=== PATIENT | female | born 1990 | race Caucasian/White ===

== ENCOUNTER → 2017-02-03 | Outpatient (CLI) | payer OTHER | END | disposition home or self-care (01) | LOC: C.LABBC 11:07 | PROVIDERS: ATTEND Family Medicine | DX: Z13.29 Encounter for screening for other suspected endocrine disorder (principal) ==

== ENCOUNTER → 2017-04-26 | Outpatient (CLI) | payer OTHER ==
--- NOTE | 2017-04-26 10:27 | DIAGNOSTIC IMAGING REPORT ---
KUB CLINICAL HISTORY: 26 years-old Female presenting with foreign body and alimentary tract, swallowed tongue ring. TECHNIQUE: Single supine view of the abdomen was obtained. COMPARISON: None. FINDINGS: No radiopaque foreign body. Normal bowel gas pattern. No evidence of free intraperitoneal gas, pneumatosis, or portal venous gas. No calcifications project over the renal shadows or along the courses of the ureters. Osseous structures normal. Lung bases clear. IMPRESSION: 1. No radiopaque foreign body in the abdomen or pelvis. Electronically signed by: Pedro Luis Bangura M.D. 04/26/2017 10:26 AM Dictated Date/Time: 04/26/2017 10:25 AM
== END | disposition home or self-care (01) ==
LOC: C.RADBC 10:09
PROVIDERS: ATTEND Physician Assistant Medical
DX: T18.9XXA Foreign body of alimentary tract, part unspecified, initial encounter (principal); Y92.9 Unspecified place or not applicable

== ENCOUNTER 2024-06-17 22:12 | Observation (INO) ==
--- OUTSIDE RECORDS SUMMARY | 2024-06-17 22:19 | External Medical Summary | Summary of Care ---
Author Name Unknown Organization [facility] Address [address] [place] [address] Phone [phone] Care Team Providers Care Aircraft Pneudraulics Repairer Name Role Phone Lori Mcguire MD Primary Care Provide r Reason for Visit * Reason Onset Date Comments Appointment Canceled 05/29/2024 EEG Encounter Details Date Type Department Care Team (Late st Contact Info) Description 05/29/2024 Telephone Neurology [facility] [address] [place] [address] Siddharth Chang, DO [address] [place] [address] Appointment Canceled (EEG) Allergies No known active allergiesdocumented as of this encounter (statuses as of 05/29/2024) Medications Medication Sig Dispensed Refills Start Date End Date Status ROBITUSSIN DM SYRP 100-10 MG/5ML ORIndications:Acute URI 1 teasp tid 4 oz 0 09/29/1999 Active Naloxone HCl 4 MG/0.1ML Nasal Liquid (Narcan Nasal) Administer 0.1 mL into nostril as needed. Administer 1 spray into 1 nostril for suspected opioid overdose. Seek immediate medical attention. [email or web address]://[email or web address]/watch?[email or web address] Active Sertraline HCl 50 MG Oral Tablet (Zoloft) Take 1 Tablet by mouth in the morning. Active Sertraline HCl 100 MG Oral Tablet (Zoloft) TAKE 1 AND 1/2 TABLET BY MOUTH EVERY DAY 02/08/2024 Active levETIRAcetam 500 MG Oral Tablet (Keppra)Indications :not sure of dose Take 2 Tablets by mouth in the morning and 2 Tablets before bedtime. 270 Tablet 2 02/16/2024 Active lamoTRIgine 100 MG Oral Tablet (LaMICtal) 1 tab in am 1 tab pm with 200 mg tablets. 180 Tablet 2 02/16/2024 Active Prazosin HCl 5 MG Oral Capsule (Minipress) Take 1 Capsule by mouth every night at bedtime. 05/22/2024 Active QUEtiapine Fumarate 400 MG Oral Tablet (SEROquel) TAKE 1 TABLET BY MOUTH EVERYDAY AT BEDTIME 04/25/2024 Active hydrOXYzine Pamoate 25 MG Oral Capsule (Vistaril) TAKE 1 CAPSULE BY MOUTH EVERY 6 HOURS NEEDED FOR ANXIETY DIRECTED 02/23/2024 Active lamoTRIgine 200 MG Oral Tablet (LaMICtal) Take 1 Tablet by mouth in the morning and 1 Tablet before bedtime. 270 Tablet 2 05/23/2024 Active documented as of this encounter (statuses as of 05/29/2024) Active Problems Problem Noted Date Diagnosed Date Epileptic seizure 11/14/2023 Anxiety 11/14/2023 Recurrent major depressive disorder, in partial remission 11/14/2023 PTSD (post-traumatic stress disorder) 11/14/2023 documented as of this encounter (statuses as of 05/29/2024) Social History Tobacco Use Types Packs/Day Years Used Date Smoking Tobacco: Never Smokeless Tobacco: Never Alcohol Use Standard Drinks/Week Comments Not Currently 0 (1 standard drink = 0.6 oz pur e alcohol) Utilities Answer Date Recorded Do you have trouble paying y our heating, water, or electric bill? (Adult - for ages 18 years and over) Not on file 01/24/2024 Is your family able to pay t he heat, water, or electric bill? (Household - for ages 0-17 years) Not on file 01/24/2024 Does your family have access to good internet? (Household - for ages 0-17 years) Not on file 01/24/2024 Social Connections Answer Date Recorded How often do you feel lonely or isolated from those around you? (Adult - for ages 18 years and over) Not on file 01/24/2024 Sex and Gender Information Value Date Recorded Sex Assigned at Not on file Gender Identity Not on file Sexual Orientation Not on file Job Start Date Occupation Industry Not on file Not on file Not on file documented as of this encounter Miscellaneous Notes * Telephone Encounter - Simran Macdonald OSA - 05/29/2024 9:31 AM EDT LMOM Pt's 72 hr EEG was cancelled and needs rescheduled documented in this encounter Plan of Treatment Upcoming Encounters Date Type Department Care Team (Late st Contact Info) Description 06/05/2024 11:40 AM EDT Office Visit Family Medicine [address] [place] [phone] Lori Mcguire MD [address] [place] [address] [place] [address] 09/18/2024 11:20 AM EST Office Visit Neurology [address] [place] [address] [place] [address] Siddharth Chang, DO [address] [place] [address] Health Maintenance Due Date Last Done Comments Depression Monitoring 2004 HIV Screening 2007 Hepatitis C Screening 2010 Pap Smear 2013 DTap/Tdap Vaccines (7 - Td or Tdap) 06/17/2015 06/17/2005, 09/05/1997, 04/19/1994, Additional history exists Cervical Cancer Screening 2022 HPV/Co-Test 2022 COVID-19 Vaccine ( season) 2024 Influenza Vaccine (FLU shot) (#1) 2024 05/08/2019, 05/21/2009 Hepatitis B Vaccine Completed 03/31/1993, 1992, 1992 Pneumococcal Vaccine: Pediatrics (0 to 5 Years) and At-Risk Patients (6 to 64 Years) Aged Out 03/18/2008 No longer eligible based on patient's age to complete this topic HPV (Gardasil) Vaccine Completed 0, 05/21/2009, 03/18/2008 MENINGOCOCCAL (MENACTRA/MENVEO) Aged Out No longer eligible based on patient's age to complete this topic documented as of this encounter Medical Devices Not on filedocumented as of this encounter Care Teams Aircraft Pneudraulics Repairer Relationship Specialty Start Date End Date Lori Mcguire MD [address] [place] [address] [place] [address] PCP - General Family Medicine 11/14/23 documented as of this encounter
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
--- OUTSIDE RECORDS SUMMARY | 2024-06-17 22:19 | External Medical Summary | Summary of Care ---
Author Name Unknown Organization [facility] Address [address] [facility] [address] Phone [phone] Care Team Providers Care Rubber Moulding Machine Operator Name Role Phone Lori Mcguire MD Primary Care Provide r Reason for Visit * Reason Onset Date Comments medication change 05/23/2024 Encounter Details Date Type Department Care Team (Late st Contact Info) Description 05/23/2024 Telephone Neurology [facility] [place] [address] [place] [address] Gabriela Argueta PA-C [address] [place] [address] medication change Allergies No known active allergiesdocumented as of this encounter (statuses as of 05/23/2024) Medications Medication Sig Dispensed Refills Start Date End Date Status ROBITUSSIN DM SYRP 100-10 MG/5ML ORIndications:Ac charlette URI 1 teasp tid 4 oz 0 09/29/1999 Active Naloxone HCl 4 MG/0.1ML Nasal Liquid (Narcan Nasal) Administer 0.1 mL into nostril as needed. Administer 1 spray into 1 nostril for suspected opioid overdose. Seek immediate medical attention. https://www.Reverse Mortgage Lenders Direct.com/watch?v= [email or web address] Active Sertraline HCl 50 MG Oral Tablet [...] before bedtime. 270 Tablet 2 05/23/2024 Active lamoTRIgine 200 MG Oral Tablet (LaMICtal) Take 1 Tablet by mouth in the morning. 180 Tablet 2 02/16/2024 Discontinued documented as of this encounter (statuses as of 05/23/2024) Active Problems Problem Noted Date Diagnosed Date Epileptic seizure 11/14/2023 Anxiety 11/14/2023 Recurrent major depressive disorder, in partial remission 11/14/2023 PTSD (post-traumatic stress disorder) 11/14/2023 documented as of this encounter (statuses as of 05/23/2024) Social History Tobacco Use Types Packs/Day Years [...] on file documented as of this encounter Plan of Treatment Upcoming Encounters Date Type Department Care Team (Late st Contact Info) Description 06/04/2024 12:30 PM EDT NeuroDiagnostic Study Neurophysiology [place] [address] [facility] [place] [address] Sp, Neurophys Tech [address] [facility] [place] [address] 06/05/2024 11:40 AM EDT Office Visit Family Medicine [address] [place] [phone] Lori Mcguire MD [address] [place] [address] [place] [address] 06/07/2024 9:00 AM EDT NeuroDiagnostic Study Neurophysiology [facility] [address] [place] [address] [facility] [place] [address] Sp, Neurophys Tech [address] [facility] [place] [address] 09/18/2024 11:20 AM EST Office Visit Neurology [address] [place] [address] Siddharth Chang, [address] [place] [address] [place] [address] Scheduled Orders Name Type Priority Associated Diagnoses Orde r Schedule LAMOTRIGINE LEVEL Lab Routine Epileptic seizure (HCC) Expected: 06/06/2024, Expires: 05/23/2025 Health Maintenance Due Date Last Done Comments [...] epilepsy documented in this encounter Care Teams Rubber Moulding Machine Operator Relationship Specialty Start Date End Date Lori Mcguire MD [address] [place] [address] [place] [phone] PCP - General Family Medicine 11/14/23 documented as of this encounter
--- OUTSIDE RECORDS SUMMARY | 2024-06-17 22:19 | External Medical Summary ---
Author Name Unknown Address Unknown Organization [id number]:[facility] [place] [address] [place] [address] Laboratory Report Ordering Provider Test Date Status TUCKER BOWMAN 02/16/2024 15:33:49 Final Observation Date Value Abnormality Reference (Units ) Status Levetiracetam level 02/16/2024 15:33:49 16 3-63 (ug/mL) Final Performing Location [facility] - [address] [place] [address]
--- OUTSIDE RECORDS SUMMARY | 2024-06-17 22:19 | External Medical Summary | Summary of Care ---
Author Name Unknown Organization [facility] Address [address] [facility] [address] Phone [phone] Care Team Providers Care Oil Tanker Captain Name Role Phone Lori Mcguire MD Primary Care Provide r Reason for Visit * Reason Comments Outpatient Testing Encounter Details Date Type Department Care Team (Late st Contact Info) Description 02/16/2024 3:20 PM EDT Laboratory Laboratory [facility] [place] [address] [place] [phone] [place], [address] Scen[address] [place] [address] Arrived Allergies No known active allergiesdocumented as of this encounter (statuses as of 02/16/2024) Medications Medication Sig Dispensed Refills Start Date End Date Status ROBITUSSIN DM SYRP 100-10 MG/5ML ORIndications:Acute URI 1 teasp tid 4 oz 0 09/29/1999 Active QUEtiapine Fumarate 150 MG Oral Tablet Take 150 mg by mouth at bedtime. Active Prazosin HCl 2 MG Oral Capsule (Minipress) Take 2 Capsules by mouth at bedtime. 10/17/2023 Active Naloxone HCl 4 MG/0.1ML Nasal Liquid (Narcan Nasal) Administer 0.1 mL into nostril as needed. Administer 1 spray into 1 nostril for suspected opioid overdose. Seek immediate medical attention. [email or web address]?v=[email or web address] Active Sertraline HCl 50 MG Oral Tablet (Zoloft) Take 1 Tablet by mouth in the morning. Active busPIRone HCl 10 MG Oral Tablet (Buspar) Take 1 Tablet by mouth in the morning and 1 Tablet at noon and 1 Tablet before bedtime. Active Sertraline HCl 100 MG Oral Tablet (Zoloft) TAKE 1 AND 1/2 TABLET BY MOUTH EVERY DAY 02/08/2024 Active levETIRAcetam 500 MG Oral Tablet (Keppra)Indications :not sure of dose Take 2 Tablets by mouth in the morning and 2 Tablets before bedtime. 270 Tablet 2 02/16/2024 Active documented as of this encounter (statuses as of 02/16/2024) Active Problems Problem Noted Date Diagnosed Date Epileptic seizure 11/14/2023 Anxiety 11/14/2023 Recurrent major depressive disorder, in partial remission 11/14/2023 PTSD (post-traumatic stress disorder) 11/14/2023 documented as of this encounter (statuses as of 02/16/2024) Social History Tobacco Use Types Packs/Day Years [...] Team (Late st Contact Info) Description 05/22/2024 2:40 PM EDT Office Visit Neurology [place] [address] [place], [place] [address] Gabriela Argueta PA-[place] 200 [facility] [place] [address] 06/05/2024 11:40 AM EDT Office Visit Family Medicine [address] [place] [phone] Lori Mcguire MD [address] [place] [address] [place] [address] Health Maintenance Due Date Last Done Comments Depression Monitoring 2004 HIV Screening 2007 Hepatitis C Screening 2010 Pap Smear 2013 DTaP,Tdap,and Td Vaccines (7 - Td or Tdap) 06/17/2015 06/17/2005, 09/05/1997, 04/19/1994, Additional history exists Cervical Cancer Screening 2022 HPV/Co-Test 2022 COVID-19 Vaccine ( season) 2023 Influenza Vaccine (FLU shot) (#1) 2024 05/08/2019, [...] filedocumented as of this encounter Care Teams Oil Tanker Captain Relationship Specialty Start Date End Date Lori Mcguire MD [address] [place] [address] [place] [address] PCP - General Family Medicine 11/14/23 documented as of this encounter
--- OUTSIDE RECORDS SUMMARY | 2024-06-17 22:19 | External Medical Summary | Summary of Care ---
Author Name Unknown Organization [facility] Address [address] [facility] [address] Phone [phone] Care Team Providers Care Manager Media Name Role Phone Lori Mcguire MD Primary Care Provide r Reason for Visit * Reason Onset Date Comments medication change 05/23/2024 Encounter Details Date Type Department Care Team (Late st Contact Info) Description 05/23/2024 Telephone Neurology [facility] [place] [address] [place] [address] Gabriela Argueta PA-C [address] [place] [address] medication change Allergies No known active allergiesdocumented [...] suspected opioid overdose. Seek immediate medical attention. [email or web address] Active Sertraline HCl 50 MG Oral Tablet [...] encounter Miscellaneous Notes * Telephone Encounter - Evita Salas MED ASSIST - 05/23/2024 9:32 AM EDT Please call patient and let her know her lamictal level is running on the low side. I increased gmr538 mg dose to twice daily. Along with the 100 mg twice daily. So she will be taking 300 mg twice daily . Lamictal level in 2 weeks Thank you KK Made pt aware and they expressed understanding. Oscar- can you update pt's number number to [phone]. Phone number currently listed is ShoorK documented in this encounter Plan of Treatment Upcoming Encounters Date Type Department Care Team (Late st Contact Info) Description 06/04/2024 12:30 PM EDT NeuroDiagnostic Study Neurophysiology [facility] [place] [address] [place] [address] Sp, Neurophys Tech [facility] [place] [address] 06/05/2024 11:40 AM EDT Office Visit Family Medicine [address] [place] [phone] Lori Mcguire MD [address] [place] [address] [place] [address] 06/07/2024 9:00 AM EDT NeuroDiagnostic Study Neurophysiology [facility] [place] [address] [place] [address] Sp, Neurophys Tech [address] [place] [address] 09/18/2024 11:20 AM EST Office Visit Neurology [facility] [address] [facility] [place] [address] Siddharth Chang, [address] [facility] [place] [address] Scheduled Orders Name Type Priority Associated Diagnoses [...] epilepsy documented in this encounter Care Teams Manager Media Relationship Specialty Start Date End Date Lori Mcguire MD [address] [place] [address] [place] [address] PCP - General Family Medicine 11/14/23 documented as of this encounter
--- OUTSIDE RECORDS SUMMARY | 2024-06-17 22:19 | External Medical Summary | Summary of Care ---
Author Name Unknown Organization [facility] Address [address] [facility] [place] [address] Phone [phone] Care Team Providers Care Frozen Food Department Manager Name Role Phone Lori Mcguire MD Primary Care Provide r Reason for Visit * Reason Comments Re-Check 6 mo Encounter Details Date Type Department Care Team (Late st Contact Info) Description 06/05/2024 11:40 AM EDT Office Visit Family Medicine [address] [phone] Lori Mcguire MD [address] [place] [address] [place] [address] Epileptic seizure (HCC)*; Screening for diabetes mellitus; Screening for lipid disorders; Anxiety; Recurrent major depressive disorder, in partial remission (HCC); PTSD (post-traumatic stress disorder); History of heroin use Allergies No known active allergiesdocumented as of this encounter (statuses as of 06/05/2024) Medications Medication Sig Dispensed Refills Start Date End Date Status ROBITUSSIN DM SYRP 100-10 MG/5ML ORIndications:Ac charlette URI 1 teasp tid 4 oz 0 09/29/1999 Active Naloxone HCl 4 MG/0.1ML Nasal Liquid (Narcan Nasal) Administer 0.1 mL into nostril as needed. Administer 1 spray into 1 nostril for suspected opioid overdose. Seek immediate medical attention. [email or web address]/[email or web address] Active Sertraline HCl 50 MG Oral Tablet [...] BY MOUTH EVERYDAY AT BEDTIME 04/25/2024 Active lamoTRIgine 200 MG Oral Tablet (LaMICtal) Take 1 Tablet by mouth in the morning and 1 Tablet before bedtime. 270 Tablet 2 05/23/2024 Active hydrOXYzine HCl 50 MG Oral TabletIndication s:Anxiety Take 1 Tablet by mouth 4 times a day as needed for Anxiety. Active hydrOXYzine Pamoate 25 MG Oral Capsule (Vistaril) TAKE 1 CAPSULE BY MOUTH EVERY 6 HOURS NEEDED FOR ANXIETY DIRECTED 02/23/2024 Discontinued documented as of this encounter (statuses as of 06/05/2024) Active Problems Problem Noted Date Diagnosed Date History of heroin use 06/05/2024 Epileptic seizure 11/14/2023 Anxiety 11/14/2023 Recurrent major depressive disorder, in partial remission 11/14/2023 PTSD (post-traumatic stress disorder) 11/14/2023 documented as of this encounter (statuses as of 06/05/2024) Social History Tobacco Use Types Packs/Day Years [...] Sign Reading Time Taken Comments Blood Pressure 104/66 06/05/2024 11:46 AM EDT Pulse 89 06/05/2024 11:46 AM EDT Temperature 36.5 C (97.7 F) 06/05/2024 11:46 AM E DT Respiratory Rate - - Oxygen Saturation 92% 06/05/2024 11:46 AM EDT Inhaled Oxygen Concentration - - Weight 95.7 kg (211 lb) 06/05/2024 11:46 AM EDT Height - - Body Mass Index - - documented in this encounter Progress Notes * Lori Mcguire MD - 06/05/2024 11:56 AM EDT Subjective: HPI: Prachi Gomez is a 33 year old female with hx of seizure, hx of heroine and meth use, PTSD, Depression, Anxiety seen for First time seeing the pt Hx of recurrent seizure: - recently saw neurology - lamictal dose and keppra dose were changed - sched to get EEG - CT head pending - last seizure was 05/22 - per pt she lost her job due to her seizure disorder ---- pt applied for temporary SSI - pt has a daughter - per pt she has been taking the meds regularly Follows up with psych at [facility] - gets meds from them Hx of Heroin Use, Meth use and IVDU - sober for 1 year - still going to AA meeting Patient Active Problem List Diagnosis Epileptic seizure (HCC) Anxiety Recurrent major depressive disorder, in partial remission (HCC) PTSD (post-traumatic stress disorder) History of heroin use Current Outpatient Medications Medication Sig Dispense Refill ROBITUSSIN DM SYRP 100-10 MG/5ML OR 1 teasp tid 4 oz 0 Naloxone HCl 4 MG/0.1ML Nasal Liquid (Narcan Nasal) Administer 0.1 mL into nostril as needed. Administer 1 spray into 1 nostril for suspected opioid overdose. Seek immediate medical attention. https:/ /[email or web address].com/watch?[email or web address] Sertraline HCl 50 MG Oral Tablet (Zoloft) Take 1 Tablet by mouth in the morning. Sertraline HCl 100 MG Oral Tablet (Zoloft) TAKE 1 AND 1/2 TABLET BY MOUTH EVERY DAY levETIRAcetam 500 MG Oral Tablet (Keppra) Take 2 Tablets by mouth in the morning and 2 Tablets before bedtime. 270 Tablet 2 lamoTRIgine 100 MG Oral Tablet (LaMICtal) 1 tab in am 1 tab pm with 200 mg tablets. 180 Tablet 2 Prazosin HCl 5 MG Oral Capsule (Minipress) Take 1 Capsule by mouth every night at bedtime. QUEtiapine Fumarate 400 MG Oral Tablet (SEROquel) TAKE 1 TABLET BY MOUTH EVERYDAY AT BEDTIME lamoTRIgine 200 MG Oral Tablet (LaMICtal) Take 1 Tablet by mouth in the morning and 1 Tablet beforebedtime. 270 Tablet 2 hydrOXYzine HCl 50 MG Oral Tablet Take 1 Tablet by mouth 4 times a day as needed for Anxiety. No current facility-administered medications for this visit. No past medical history on file. Past Surgical History: Procedure Laterality Date ANESTH, TUBAL LIGATION Review of patient's allergies indicates: No Known Allergies No family history on file. Social History Tobacco Use Smoking status: Never Smokeless tobacco: Never Substance Use Topics Alcohol use: Not Currently Vaping/E-Cigarette Use Vaping/E-Cigarette Use Current Every Day User Vaping/E-Cigarette Substances Vaping/E-Cigarette Devices ROS: -Per HPI OBJECTIVE: BP 104/66 | Pulse 89 | Temp 36.5 C (97.7 F) | Wt 95.7 kg (211 lb) | SpO2 92% PHYSICAL EXAM: Vitals are reviewed General:. NAD, well developed HEENT:. Normal Conjunctiva, EOMI Cardiac:. Normal S1, S2, no murmur Lungs:. CTA, no wheezing or crackles MSK:. Normal gait Psych:. AAOx3, normal affect ASSESSMENT/PLAN: Will help pt loraine her CT head Labs today Has been seizure free for 2 weeks Going to AA meeting and has been sober for 1 year Epileptic seizure (HCC) (Primary) - TSH WITH FREE T4 IF INDICATED Screening for diabetes mellitus - HEMOGLOBIN A1C Screening for lipid disorders - LIPID PANEL WITHOUT DIRECT LDL Anxiety - TSH WITH FREE T4 IF INDICATED Recurrent major depressive disorder, in partial remission (HCC) - TSH WITH FREE T4 IF INDICATED PTSD (post-traumatic stress disorder) - TSH WITH FREE T4 IF INDICATED History of heroin use Follow-up: Return in about 6 months (around 12/04/2024). | Check-out note: Pls help pt loraine CT head I spent a total of 30-39 minutes (exact time 32 mins) on the date of service in preparation, delivery, and documentation of the care provided to Prachi Gomez excluding any time spent in the performance of separately billed services or time spent by another provider/QHP. Lori Mcguire MD Family medicine[address] [address] documented in this encounter Nursing Notes * Jessica Khan CMA - 06/05/2024 11:41 AM EDT She is here for a 6 mo recheck. She has been having seizures. She had 3 on 05/14 and 3 on 05/22. They last about a minute. She went to the neurologist and they adjusted her meds; she is also scheduled to have an EEG. She lost her job due to the seizures. She has applied for SSI. Ok with scheduling a PAP with Miguel. documented in this encounter Plan of Treatment Upcoming Encounters Date Type Department Care Team (Late st Contact Info) Description 06/26/2024 12:30 PM EST NeuroDiagnostic Study Neurophysiology [facility] [place] 200 [facility] [place] [address] Sp, Neurophys Tech 200 [facility] [place] [address] 06/29/2024 9:00 AM EST NeuroDiagnostic Study Neurophysiology [facility] [place] 200 [facility] [place] [address] Sp, Neurophys Tech [address] [place], [place] [address] 09/18/2024 11:20 AM EST Office Visit Neurology [facility] [place] 200 [facility] [place] [address] Siddharth Chang, [address] [facility] [address] [place], [place] [address] Pending Results Name Type Priority Associated Diagnoses Date /Time TSH WITH FREE T4 IF INDICATED Lab Routine Anxiety Epileptic seizure (HCC) Recurrent major depressive disorder, in partial remission (HCC) PTSD (post-traumatic stress disorder) 06/05/2024 12:21 PM EDT HEMOGLOBIN A1C Lab Routine Screening for diabetes mellitus 06/05/2024 12:21 PM EDT LIPID PANEL WITHOUT DIRECT LDL Lab Routine Screening for lipid disorders 06/05/2024 12:21 PM EDT Health Maintenance Due Date Last Done Comments [...] Unspecified epilepsy without mention of intractable epilepsy Screening for diabetes mellitus Screening for lipid disorders Anxiety Anxiety state, unspecified Recurrent major depressive disorder, in partial remission (HCC) PTSD (post-traumatic stress disorder) Posttraumatic stress disorder History of heroin use documented in this encounter Care Teams Frozen Food Department Manager Relationship Specialty Start Date End Date Lori Mcguire MD [address] [place] [address] [place] [phone] PCP - General Family Medicine 11/14/23 documented as of this encounter"
--- OUTSIDE RECORDS SUMMARY | 2024-06-17 22:19 | External Medical Summary | Summary of Care ---
Author Name Unknown Organization [facility] Address [address] [facility] [place] [address] Phone [phone] Care Team Providers Care Residential Program Worker Name Role Phone Lori Mcguire MD Primary Care Provide r Reason for Visit * Reason Comments Outpatient Testing Encounter Details Date Type Department Care Team (Late st Contact Info) Description 05/22/2024 3:00 PM EDT Laboratory Laboratory [facility] [address] [place] [phone] [place], Lab Scenery [address] [place] [address] Arrived Allergies No known active allergiesdocumented as [...] suspected opioid overdose. Seek immediate medical attention. [email or web address]?v=[email or web address] Active Sertraline HCl 50 MG Oral Tablet [...] HOURS NEEDED FOR ANXIETY DIRECTED 02/23/2024 Active documented as of this encounter (statuses [...] 12:30 PM EDT NeuroDiagnostic Study [place] [address] [place] [address] Sp, Neurophys Tech [address] [place] [address] 06/05/2024 11:40 AM EDT Office Visit Family Medicine [address] [phone] Lori Mcguire MD [address] [place] [address] [place] [address] 06/07/2024 9:00 AM EDT [facility] [employer] [address] [place] [address] Sp, Neurophys Tech 200 [facility] [place] [address] 09/18/2024 11:20 AM EST Office Visit Neurology [facility] [place] 200 [facility] [place] [address] Siddharth Chang, 200 [facility] [place] [address] Health Maintenance Due Date Last Done Comments [...] filedocumented as of this encounter Care Teams Residential Program Worker Relationship Specialty Start Date End Date Lori Mcugire MD [address] [place] [address] [place] [phone] PCP - General Family Medicine 11/14/23 documented as of this encounter
--- OUTSIDE RECORDS SUMMARY | 2024-06-17 22:19 | External Medical Summary ---
Author Name Unknown Address Unknown Organization [id number]:LABORATORY [facility] [place] [address] [facility] [address]. [place] [address] Laboratory Report Ordering Provider Test Date Status RADHA DIAS 06/05/2024 12:21:52 Katerina l Observation Date Value Abnormality Reference (Units ) Status Triglyceride 06/05/2024 12:21:52 172 <=174 ( mg/dL) Final Triglyceride Reference Range s (mg/dL):
<150 Acceptable
150-174 Borderline high
175-499 High
>=500 Very high Cholesterol 06/05/2024 12:21:52 238 Above high normal <200 (mg/dL) Final Total Cholesterol Reference Ranges (mg/dL):
<200 Desirable
200-239 Borderline high
>=240 High HDL 06/05/2024 12:21:52 48 Below low normal >49 (mg/dL) Final HDL Cholesterol Reference Ra nges (mg/dL):
>=60 High (Desirable)
<50 Low (Undesirable) For Females
<40 Low (Undesirable) For Males NON-HDL CHOLESTEROL 06/05/2024 12:21:52 190 Above high normal <=159 (mg/dL) Final Non-HDL Cholesterol Referenc e Range (mg/dL):
<100 Target level for high risk ASCVD patient
<130 Optimal for general population
130-159 Near optimal for general population
160-189 Borderline High
190-219 High
>=220 Very High LDL, (calculated) 06/05/2024 12:21:52 156 Above high n ormal <=129 (mg/dL) Final LDL Cholesterol Reference Ra nges (mg/dL):
<70 Target level for high risk ASCVD patient
<100 Optimal for general population
100-129 Near optimal for general population
130-159 Borderline high
160-189 High
>=190 Very high Performing Location LAB[facility]ATORY [facility] [place] - [address] [facility] [address]
--- OUTSIDE RECORDS SUMMARY | 2024-06-17 22:19 | External Medical Summary ---
Author Name Unknown Address Unknown Organization [id number]:LAB[facility]ATORY [facility] [place] - [address] [place] [address] Laboratory Report Ordering Provider Test Date Status GRACIETUCKER KHALIL 02/16/2024 15:33:49 Final Observation Date Value Abnormality Reference (Units ) Status Lamotrigine level 02/16/2024 15:33:49 4.1 2. 5-15.0 (ug/mL) Final Performing Location LABORATORY [facility] - [address] [place] [address]
--- OUTSIDE RECORDS SUMMARY | 2024-06-17 22:19 | External Medical Summary ---
Author Name Unknown Address Unknown Organization [id number]:LABORATORY [facility] [place] - [address] [place] [address] Laboratory Report Ordering Provider Test Date Status GRACIETUCKER KHALIL 05/22/2024 15:49:15 Final Observation Date Value Abnormality Reference (Units ) Status Lamotrigine level 05/22/2024 15:49:15 3.4 2. 5-15.0 (ug/mL) Final Performing Location LABORATORY [facility] - [address] [place] [address]
--- OUTSIDE RECORDS SUMMARY | 2024-06-17 22:19 | External Medical Summary | Summary of Care ---
Author Name Unknown Organization [facility] Address [address] [place] [address] Phone [phone] Care Team Providers Care Nut Sheller Machine Operator Name Role Phone Lori Mcguire MD Primary Care Provide r Reason for Visit * Reason Comments Outpatient Testing Encounter Details Date Type Department Care Team (Late st Contact Info) Description 06/04/2024 12:10 PM EDT Laboratory Laboratory [facility] [address] [place] [phone] [facility] [address] [place] [address] Epileptic seizure (HCC) Allergies No known active allergiesdocumented as of this encounter (statuses as of 06/04/2024) Medications Medication Sig Dispensed Refills Start Date End Date Status ROBITUSSIN DM SYRP 100-10 MG/5ML ORIndications:Acute URI 1 teasp tid 4 oz 0 09/29/1999 Active Naloxone HCl 4 MG/0.1ML Nasal Liquid (Narcan Nasal) Administer 0.1 mL into nostril as needed. Administer 1 spray into 1 nostril for suspected opioid overdose. Seek immediate medical attention. [email or web address]?v=[email or web address] Active Sertraline HCl 50 MG Oral Tablet [...] as of this encounter (statuses as of 06/04/2024) Active Problems Problem Noted Date Diagnosed Date Epileptic seizure 11/14/2023 Anxiety 11/14/2023 Recurrent major depressive disorder, in partial remission 11/14/2023 PTSD (post-traumatic stress disorder) 11/14/2023 documented as of this encounter (statuses as of 06/04/2024) Social History Tobacco Use Types Packs/Day Years [...] 11:40 AM EDT Office Visit Family Medicine [address] [place] [phone] Lori Mcguire MD [address] [place] [address] [place] [address] 06/26/2024 12:30 PM EST NeuroDiagnostic Study Neurophysiology [facility] [place] [address] [place] [address] Sp, Neurophys Tech [address] [place] [address] 06/29/2024 9:00 AM EST NeuroDiagnostic Study Neurophysiology [facility] [place] [address] [place] [address] Sp, Neurophys Tech [address] [place] [address] 09/18/2024 11:20 AM EST Office Visit Neurology [facility] [place] [address] [place] [address] Siddharth Chang, DO [address] [place] [address] Health Maintenance Due Date Last Done Comments [...] this encounter Visit Diagnoses Diagnosis Epileptic seizure (HCC) Unspecified epilepsy without mention of intractable epilepsy documented in this encounter Care Teams Nut Sheller Machine Operator Relationship Specialty Start Date End Date Lori Mcguire MD [address] [place] [address] [place] [phone] PCP - General Family Medicine 11/14/23 documented as of this encounter
--- OUTSIDE RECORDS SUMMARY | 2024-06-17 22:19 | External Medical Summary ---
Author Name Unknown Address Unknown Organization K01:[facility] [place] [address] [place] [address] Laboratory Report Ordering Provider Test Date Status ALTHEA DIASGABRIELA 06/05/2024 12:21:52 Katerina l Observation Date Value Abnormality Reference (Units ) Status HbA1C 06/05/2024 12:21:52 4.8 4.0-5.6 (% ) Final The use of HbA1c to monitor glycemic status is based on normal hemoglobin and HbA composition. This test should not be used in patients with abnormal hemoglobin that affects the half life of the red blood cell or the in vivo glycation rates. Glucose, estimated average 06/05/2024 12:21:52 91 <126 (mg/dL) Final Performing Location [facility] [place] [address] [place] [address]
--- OUTSIDE RECORDS SUMMARY | 2024-06-17 22:19 | External Medical Summary | Summary of Care ---
Author Name Unknown Organization [facility] Address [facility] [address] Phone [phone] Care Team Providers Care Manager Fraud Name Role Phone Lori Mcguire MD Primary Care Provide r Reason for Visit * Reason Comments Outpatient Testing Encounter Details Date Type Department Care Team (Late st Contact Info) Description 06/05/2024 12:20 PM EDT Laboratory Laboratory [address] [place] [phone] [facility] [address] [place] [address] Arrived Allergies No known active allergiesdocumented as [...] suspected opioid overdose. Seek immediate medical attention. [email or web address]/watch?v=v26c [email or web address] Active Sertraline HCl 50 MG Oral Tablet [...] 05/23/2024 Active hydrOXYzine HCl 50 MG Oral TabletIndications:A nxiety Take 1 Tablet by mouth 4 times a day as needed for Anxiety. Active documented as of this encounter (statuses [...] 06/26/2024 12:30 PM EST NeuroDiagnostic Study Neurophysiology [facility] [place] [address] [place] [address] Sp, Neurophys Tech 200 [facility] [place] [address] 06/29/2024 9:00 AM EST NeuroDiagnostic Study Neurophysiology [facility] [place] [address] [place] [address] Sp, Neurophys Tech [address] [place] [address] 09/18/2024 11:20 AM EST Office Visit Neurology [facility] [place] [address] [place] [address] Siddharth Chang, DO 200 [facility] [place] [address] Health Maintenance Due Date Last Done Comments [...] filedocumented as of this encounter Care Teams Manager Fraud Relationship Specialty Start Date End Date Lori Mcguire MD [address] [place] [address] [place] [address] PCP - General Family Medicine 11/14/23 documented as of this encounter
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
--- OUTSIDE RECORDS SUMMARY | 2024-06-17 22:19 | External Medical Summary | Summary of Care ---
Author Name Unknown Organization [facility] Address [address] [place] [facility] [place] [address] Phone [phone] Care Team Providers Care Professor Computer Science Name Role Phone Lori Mcguire MD Primary Care Provide r Reason for Visit * Reason Onset Date Comments medication change 05/23/2024 Encounter Details Date Type Department Care Team (Late st Contact Info) Description 05/23/2024 Telephone Neurology [facility] [place] [address] [place] [address] Gabriela Argueta PA-C [address] [place] [address] medication change Allergies No known active allergiesdocumented as of this encounter (statuses as of 05/23/2024) Medications Medication Sig Dispensed Refills Start Date End Date Status ROBITUSSIN DM SYRP 100-10 MG/5ML ORIndications:Ac [place] URI 1 teasp tid 4 oz 0 09/29/1999 Active Naloxone HCl 4 MG/0.1ML Nasal Liquid (Narcan Nasal) Administer 0.1 mL into nostril as needed. Administer 1 spray into 1 nostril for suspected opioid overdose. Seek immediate medical attention. [email or web address]://[email or web address]?[email or web address] Active Sertraline HCl 50 MG Oral Tablet [...] Telephone Encounter - Simran Macdonald OSA - 05/23/2024 10:48 AM EDT Number updated * Telephone Encounter - Evita Salas MED ASSIST - 05/23/2024 9:32 AM EDT Please call patient and let her know her lamictal level is running on the low side. I increased [id number] mg dose to twice daily. Along with the 100 mg twice daily. So she will be taking 300 mg twice daily . Lamictal level in 2 weeks Thank you KK Made pt aware and they expressed understanding. Oscar- can you update pt's number number to [phone]. Phone number currently listed is [facility] documented in this encounter Plan of Treatment Upcoming Encounters Date Type Department Care Team (Late st Contact Info) Description 06/04/2024 12:30 PM EDT NeuroDiagnostic Study Neurophysiology [address] [place] [address] Sp, Neurophys Tech 200 [facility] [place] [address] 06/05/2024 11:40 AM EDT Office Visit Family Medicine [address] [place] [phone] Lori Mcguire MD [address] [place] [address] [place] [address] 06/07/2024 9:00 AM EDT NeuroDiagnostic Study Neurophysiology [facility] 200 [facility] [place] [address] Sp, Neurophys Tech 200 [facility] [place] [address] 09/18/2024 11:20 AM EST Office Visit Neurology [facility] [place] 200 [facility] [place] [address] Siddharth Chang, 200 [facility] [place] [address] Scheduled Orders Name Type Priority Associated Diagnoses [...] epilepsy documented in this encounter Care Teams Professor Computer Science Relationship Specialty Start Date End Date Lori Mcguire MD [address] [place] [address] [place] [address] PCP - General Family Medicine 11/14/23 documented as of this encounter
--- OUTSIDE RECORDS SUMMARY | 2024-06-17 22:19 | External Medical Summary ---
Author Name Unknown Address Unknown Organization K01:LABORATORY [facility] - [address] [facility] [address] [place] [address] Laboratory Report Ordering Provider Test Date Status RADHA DIAS 06/05/2024 12:21:52 Katerina l Observation Date Value Abnormality Reference (Units ) Status TSH 06/05/2024 12:21:52 0.97 0.27-4.20 (uIU/mL) Final Performing Location LABORATORY [facility] - [address] [place] [address]
--- OUTSIDE RECORDS SUMMARY | 2024-06-17 22:19 | External Medical Summary | Summary of Care ---
Author Name Unknown Organization [facility] Address [address] [facility] [place] [address] Phone [phone] Care Team Providers Care Sack Maker Name Role Phone Lori Mcguire MD Primary Care Provide r Encounter Details Date Type Department Care Team (Late st Contact Info) Description 05/25/2024 Orders Only PATIENT PORTAL DO NOT DELETE THIS DEPT USED BY [place] [id number] Allergies No known active allergiesdocumented as of this encounter (statuses as of 05/25/2024) Medications Medication Sig Dispensed Refills Start Date End Date Status ROBITUSSIN DM SYRP 100-10 MG/5ML ORIndications:Acute URI 1 teasp tid 4 oz 0 09/29/1999 Active Naloxone HCl 4 MG/0.1ML Nasal Liquid (Narcan Nasal) Administer 0.1 mL into nostril as needed. Administer 1 spray into 1 nostril for suspected opioid overdose. Seek immediate medical attention. [email or web address]?v=[email or web address] Active Sertraline HCl 50 MG Oral Tablet [...] as of this encounter (statuses as of 05/25/2024) Active Problems Problem Noted Date Diagnosed Date Epileptic seizure 11/14/2023 Anxiety 11/14/2023 Recurrent major depressive disorder, in partial remission 11/14/2023 PTSD (post-traumatic stress disorder) 11/14/2023 documented as of this encounter (statuses as of 05/25/2024) Social History Tobacco Use Types Packs/Day Years [...] 06/04/2024 12:30 PM EDT NeuroDiagnostic Study Neurophysiology [facility] [place] [address] [place] [address] Sp, Neurophys Tech [address] [place] [address] 06/05/2024 11:40 AM EDT Office Visit Family Medicine [address] [place] [phone] Lori Mcguire MD [address] [place] [address] [place] [address] 06/07/2024 9:00 AM EDT NeuroDiagnostic Study Neurophysiology [facility] [place] [address] [place] [address] Sp, Neurophys Tech 200 [facility] [place] [address] 09/18/2024 11:20 AM EST Office Visit Neurology [facility] [place] 200 [facility] [place] [address] Siddharth Chang, 200 [facility] [place] [address] Health Maintenance Due Date Last Done Comments [...] filedocumented as of this encounter Care Teams Sack Maker Relationship Specialty Start Date End Date Lori Mcguire MD [address] [place] [address] [place] [phone] PCP - General Family Medicine 11/14/23 documented as of this encounter
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
--- OUTSIDE RECORDS SUMMARY | 2024-06-17 22:19 | External Medical Summary ---
Author Name Unknown Address Unknown Organization K01:[facility]ORY [facility] - [address] [place] [address] Laboratory Report Ordering Provider Test Date Status TUCKER BOWMAN 06/05/2024 12:21:52 Final Observation Date Value Abnormality Reference (Units ) Status Lamotrigine level 06/05/2024 12:21:52 7.5 2. 5-15.0 (ug/mL) Final Performing Location LABORATORY [facility] - [address] [place] [address]
[2024-06-17] MEDS: levETIRAcetam 500 MG/5 ML VIAL IV STA (22:30)
--- NOTE | 2024-06-17 22:36 | Emergency Department Note ---
Impression & Plan Seizure, Substance use disorder ED Provider Note NAME: NATHAN WATSON AGE: 33 SEX: F : 1990 ARRIVES VIA: Ambulance INFORMANT: Patient, EMS ED PROVIDER(S): Suresh Mancilla DO CHIEF COMPLAINT: Seizure HPI: The patient is a 33-year-old female who presented to the emergency department for a seizure. The patient does have a history of seizure disorder in the past. She also has a history of substance abuse. Reportedly the patient recently got out of inpatient rehab and has been clean according to the family. I did receive a prehospital notification about the patient. The patient received 9 mg of Versed prior to arrival. She received IM Versed as well as IV Versed. Upon arrival she has no further seizing but she is obtunded and cannot answer questions. The patient had multiple episodes of tonic-clonic activity. She was not able to answer questions for the prehospital personnel. She did bite her tongue. There is no reported dysrhythmia other than sinus tachycardia prior to arrival. ROS: See above HPI for pertinent positives & negatives. A total of 10 systems reviewed and were otherwise negative. PAST MEDICAL HISTORY: See Below PAST SURGICAL HISTORY: See Below FAMILY HISTORY: See Below SOCIAL HISTORY: See Below HOME MEDICATIONS: See Below ALLERGIES: See Below VITALS: See Below PHYSICAL EXAMINATION: GENERAL: The patient is awake. She is following commands slowly and intermittently. EYES: The conjunctivae are clear. The pupils are elated but reactive bilaterally. EARS, NOSE, MOUTH AND THROAT: The nose is without any evidence of any deformity. The patient has bite to the right lateral tongue. No active bleeding was noted. NECK: The neck is nontender and supple. RESPIRATORY: Normal respiratory effort is noted there is no evidence of wheezing rhonchi or rales CARDIOVASCULAR: Tachycardic and regular heart sounds were noted to auscultation. There is no definite murmur. GASTROINTESTINAL: The abdomen is soft. Abdomen is nontender. MUSCULOSKELETAL/EXTREMITIES: There is no evidence of gross deformity full range of motion is noted in the hips and shoulders. SKIN: There is no obvious evidence of any rash. There are no petechiae, pallor or cyanosis noted. NEUROLOGIC: Patient is awake and oriented to person place but not time or situation. The patient's strength is symmetric. Patellar tendon reflexes are 2+ bilaterally. Speech is pressured. MEDICAL DECISION MAKING: The patient is a 33-year-old female who presented to the emergency department for an evaluation of seizure. The patient had multiple seizures prior to arrival. She was treated with 9 mg of Versed prior to arrival. She arrived obtunded but started to improve while in the emergency department. The patient was reevaluated multiple times. I discussed patient's laboratory and radiographic studies with her. CT showed no acute process. She was treated with IV Keppra. On reevaluation she was awake and alert. She was able to ambulate. Given the patient's recurrence of seizure as well as the possibility for medication noncompliance I discussed her condition with the on-call [facility] Hospitalist. They have agreed to evaluate the patient. Triage Nursing notes reviewed. Prior medical records reviewed Vital Signs: reviewed and remarkable for hypotension and tachycardia. Differential diagnosis: Epilepsy, infection, hypoglycemia, electrolyte abnormalities, cardiac sources, intracerebral event, trauma, toxicologic, neurologic, syncope, as well as other pathologies. ER treatment provided: See below Diagnostics interpreted by me: ECG: EKG was obtained in the emergency department. My interpretation is sinus tachycardia at 125 bpm. There was no ectopy. Nonspecific ST segment abnormalities were noted. No previous tracing was available Cardiac Monitoring: An order was placed for continuous cardiac monitoring. The monitor shows a rate of 113 bpm with sinus tachycardia. Laboratory studies: As stated above and show below. Imaging studies: See below. Radiographic imaging was reviewed by myself Consultation(s): I discussed this case with Dr. Orlando who is on-call for the [facility] Hospitalist group. ED COURSE: Procedures: none Critical Care: I have personally spent greater than 35 minutes of critical care time in the direct management of this patient. This includes bedside care, interpretation of diagnostic studies, and testing, discussion with consultants, patient, and family members, and other required patient management activities. This 35 minutes is in excess of all separately billable procedures. Past Med/Surg History Problem List Substance use disorder (Acute) Seizure (Acute) PTSD (post-traumatic stress disorder) (Acute) Depression (Acute) Current smoker (Acute) Surgical History History of tubal ligation Family History Father Anxiety Cirrhosis of liver Mother Anxiety Grandfather (Maternal) Colorectal cancer Grandmother (Maternal) Breast cancer, Onset Age: 60 Grandfather (Paternal) Myocardial infarction Denies family history of Ovarian cancer Prostate cancer Lung cancer Social History Smoking Status: Unknown if ever smoked Tobacco Type: Cigarettes Age Started Using Tobacco: 10; packs per day: 3; Second Hand Exposure: Yes; Do You Dip or Chew Tobacco: No; Hx Alcohol Use: No Hx Substance Use: Yes Prescribed Medications: Marijuana Preferred Language: Chinese Communication Ability: Effective Visual Impairment: Limited Hearing Ability: Normal 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 marital status: Single Current Living Situation: Family Current Living Situation Comment: daughter and gram current occupational status: unemployed How many Children do You have: 1 Feels Safe at Home: Yes Childhood Exposure to Second-Hand Smoke: Yes caffeine: Yes (drinks coffee ) Dental Care, Regularly: No Physical Activity Frequency: Does not Exercise Seatbelt Use: always Sunscreen Use: No Allergies Allergies Allergy/AdvReac Type Severity Reaction Status Date / Time No Known Drug Allergies Allergy Verified 03/09/21 10:41 Home Meds Home Medications Medication Instructions Recorded Confirmed buprenorphine 8 mg-naloxone 2 mg 1 ea sublingual DAILY 01/10/20 03/09/21 sublingual film (Suboxone) Previous Rx's Medication Instructions Recorded fluoxetine 20 mg capsule 20 mg PO DAILY #30 caps 03/09/21 lamotrigine 100 mg tablet 50 mg (1/2 x 100 mg) PO QAM #30 03/09/21 tabs levetiracetam 500 mg tablet 500 mg PO BID #60 tabs 03/09/21 (Keppra) prazosin 1 mg capsule 1 mg PO QPM #30 caps 03/09/21 Results & Data (ED) Vital Signs Vital Signs - 24 hr 06/17/24 22:18 06/17/24 22:21 06/17/24 22:21 Temperature Temperature Source Pulse Rate 126 H 103 H Pulse Rate [Right Finger] Respiratory Rate 18 Respiratory Effort / Characteristics Non-Labored Spontaneous Blood Pressure 124/95 Blood Pressure [Right Arm] Blood Pressure Mean 104 Blood Pressure Mean [Right Arm] Blood Pressure Position Lying Blood Pressure Position [Right Arm] Pulse Oximetry 97 97 Oxygen Delivery Method Room Air Room Air Sepsis Recent Fever Within 48 Hours No Sepsis New/Unexplained Change in Mental Status No Sepsis Action Taken by Nursing No Action Required 06/17/24 22:21 06/17/24 22:21 06/18/24 00:14 Temperature 37.0 C Temperature Source Oral Pulse Rate 110 H Pulse Rate [Right Finger] 110 H 113 H Respiratory Rate 16 18 22 Respiratory Effort / Characteristics Non-Labored Spontaneous Blood Pressure Blood Pressure [Right Arm] 124/95 84/55 L Blood Pressure Mean Blood Pressure Mean [Right Arm] 104 64 Blood Pressure Position Blood Pressure Position [Right Arm] Lying Pulse Oximetry 98 98 92 Oxygen Delivery Method Room Air Room Air Room Air Sepsis Recent Fever Within 48 Hours Sepsis New/Unexplained Change in Mental Status Sepsis Action Taken by Correction Medications Current Medication List: was personally reviewed by me Laboratory Data Attestation: I reviewed the patient's lab results. 06/17/24 22:32 06/17/24 23:15 Lab Results 06/17/24 06/17/24 06/17/24 Range/Units 22:32 23:15 23:21 WBC 6.91 (4.8-10.8) K/ul RBC 4.14 L (4.20-5.40) M/uL Hgb 12.6 (12.0-16.0) g/dl Hct 37.5 (37.0-47.0) % MCV 90.6 (80.0-100.0) fL MCH 30.4 (25.0-34.0) pg MCHC 33.6 (32.0-36.0) g/dL RDW Std Deviation 39.8 (36.4-46.3) fL RDW Coeff of Robert 11.9 (11.5-14.5) % Plt Count 208 (130-400) K/uL MPV 11.0 (9.4-12.4) fL Immature Gran % (Auto) 0.3 % Neut % (Auto) 70.9 % Lymph % (Auto) 18.8 % Vernon % (Auto) 7.2 % Eos % (Auto) 2.5 % Baso % (Auto) 0.3 % Neut # (Auto) 4.90 (1.40-6.50) K/uL Lymph # (Auto) 1.30 (1.20-3.40) K/uL Vernon # (Auto) 0.50 (0.11-0.59) K/uL Eos # (Auto) 0.17 (0.00-0.50) K/uL Baso # (Auto) 0.02 (0.00-0.20) K/uL Immature Gran # (Auto) 0.02 (0.01-0.20) K/uL PT 11.1 (9.0-12.0) Seconds INR 1.0 (0.9-1.1) APTT 26 (21-31) Seconds PTT Ratio 1.0 VBG pH 7.28 L (7.36-7.41) VBG pCO2 52 H (38-50) mmHg VBG pO2 27 mmHg VBG HCO3 24 mmol/L VBG O2 Saturation < 60.0 % VBG Base Excess -3.0 mEq/L Sodium 138 (136-145) mmol/L Potassium TNP 3.7 Chloride 107 (98-107) mmol/L Carbon Dioxide 21 (21-32) mmol/L Anion Gap 10 (3-11) BUN 10 (6-23) mg/dl Creatinine 0.84 (0.6-1.2) mg/dl Est Cr Clr Drug Dosing Not Reportable eGFR 95.22 BUN/Creatinine Ratio 11.9 (10-20) Glucose 83 (70-99(Fasting)) mg/dl Calcium 8.7 (8.6-10.3) mg/dl Magnesium 2.2 (1.7-2.4) mg/dl Total Bilirubin 0.2 (0.2-1.0) mg/dl AST TNP 12 L ALT 9 (7-52) U/L Alkaline Phosphatase 38 (34-104) U/L Total Creatine Kinase 202 H (26-192) U/L Troponin I High Sens 5.5 (0-14) pg/ml Total Protein 7.1 (6.0-8.3) gm/dl Albumin 4.5 (3.4-5.0) gm/dl Globulin 2.6 (2.5-4.0) gm/dl Albumin/Globulin Ratio 1.7 (0.9-2) Lipase 51 (11-82) U/L HCG, Qual Negative (Negative) Urine Color Yellow Urine Appearance Clear (Clear) Urine pH 5.5 (4.5-7.5) Ur Specific [place] 1.011 (1.000-1.030) Urine Protein Trace H (Negative) Urine Glucose (UA) Negative (Negative) Urine Ketones Negative (Negative) Urine Blood Negative (Negative) Urine Nitrite Negative (Negative) Urine Bilirubin Negative (Negative) Urine Urobilinogen Negative (Negative) Ur Leukocyte Esterase Negative (Negative) Urine WBC (Auto) 0-5 (0-5) /hpf Urine RBC (Auto) 0-2 (0-2) /hpf U Hyaline Cast (Auto) 3-5 H (0-2) /lpf U Epithel Cells (Auto) 0-2 (0-2) /hpf Urine Bacteria (Auto) None Seen (None Seen) Salicylates < 3.0 L (3.0-30) mg/dl Urine Opiates Screen Neg (Neg) Ur Methadone, Qual Neg (Neg) Urine Fentanyl Screen Neg (Neg) Acetaminophen < 3 L (10-30) ug/ml Urine Barbiturates Neg (Neg) Ur Phencyclidine (PCP) Neg (Neg) U Amphetamin/Meth Scrn Neg (Neg) MDMA (Ecstasy) Screen Neg (Neg) U Benzodiazepines Scrn Pos H (Neg) Ur Cocaine Metabolite Neg (Neg) U Marijuana (THC) Screen Pos H (Neg) Ethyl Alcohol mg/dL < 10.0 (<10.0) mg/dl Administered Medications Discontinued Medications Levetiracetam (Levetiracetam 500 Mg/5 Ml Vial) 2,000 mg IV NOW STA Stop: 06/17/24 22:16 Last Admin: 06/17/24 22:30 Dose: 2,000 mg Documented By: MANUEL Imaging Data Attestation: I personally reviewed and interpreted this imaging study as follows: My Impression: 1 view chest x-ray was obtained in the emergency department. My interpretation is no free air or definite infiltrate, final report below. CT the brain was obtained in the emergency department. My interpretation is no intracranial hemorrhage or mass effect, final report below. Radiologist's Impression: Chest X-Ray 06/17/24 22:15 Exam(s): XR CXR 1 VIEW EXAM: XR Chest, 1 View CLINICAL HISTORY: sz. TECHNIQUE: Frontal view of the chest. COMPARISON: No relevant prior studies available. FINDINGS: Lungs: Hypoventilation with minimal bibasilar vascular crowding. No focal infiltrate. Pleural space: No pleural effusion. No pneumothorax. Heart: Unremarkable. No cardiomegaly. Mediastinum: Unremarkable. Normal mediastinal contour. Bones/joints: Unremarkable. No acute fracture. IMPRESSION: Hypoventilation with minimal bibasilar vascular crowding. Electronically signed by: Emery Rivas M.D. 06/18/24 00:[address] 06/17/24 22:15 Exam(s): CT HEAD Without Contrast EXAM: CT Head Without Intravenous Contrast CLINICAL HISTORY: sz. TECHNIQUE: Axial computed tomography images of the head/brain without intravenous contrast. CTDI is 54.1 mGy and DLP is 746.9 mGy-cm. Automated exposure control was utilized for the study. A dose lowering technique was utilized adhering to the principles of ALARA. COMPARISON: No relevant prior studies available. FINDINGS: Brain: Ventricle and sulci normal in size and configuration for age. No acute stroke. No acute hemorrhage. No abnormal extra-axial fluid collection. Ventricles: No hydrocephalus. No midline shift. Bones/joints: Unremarkable. No acute fracture. Soft tissues: Unremarkable. Sinuses: Unremarkable as visualized. No acute sinusitis. IMPRESSION: No acute abnormality. Electronically signed by: Emery Rivas M.D. 06/18/24 00:07 AM Discharge Plan Visit Data Chief Complaint: Seizure Stated Complaint: SEIZURE ED Provider: Suresh Mancilla Discharge Problem: Seizure, Substance use disorder Patient Disposition: Being Evaluated by Hospitalist Forms Stand Alone Forms: My [facility] Prescriptions Prescriptions: No Action lamotrigine 100 mg tablet 50 mg PO QAM Qty: 30 2RF levetiracetam [Keppra] 500 mg tablet 500 mg PO BID Qty: 60 2RF prazosin 1 mg capsule 1 mg PO QPM Qty: 30 2RF fluoxetine 20 mg capsule 20 mg PO DAILY Qty: 30 2RF buprenorphine-naloxone [Suboxone] 8-2 mg film 1 ea SL DAILY Referrals Referrals: PCP,NO [Primary Care Provider] -
[2024-06-17 22:46] LABS: Basophils # (auto) 0.02 K/uL (0.00-0.20); Basophils % (auto) 0.3 %; Eosinophils # (auto) 0.17 K/uL (0.00-0.50); Eosinophils % (auto) 2.5 %; Hematocrit (blood only) 37.5 % (37.0-47.0); Hemoglobin 12.6 g/dl (12.0-16.0); Immature Granulocytes # (auto) 0.02 K/uL (0.01-0.20); Immature Granulocytes % (auto) 0.3 %; Lymphocytes % (auto) 18.8 %; Mean Corpuscular Hemoglobin 30.4 pg (25.0-34.0); Mean Corpuscular Hgb Conc 33.6 g/dL (32.0-36.0); Mean Corpuscular Volume 90.6 fL (80.0-100.0); Monocytes % (auto) 7.2 %; Neutrophils % (auto) 70.9 %; Platelet Count 208 K/uL (130-400); RDW Coefficient of Variation 11.9 % (11.5-14.5); RDW Standard Deviation 39.8 fL (36.4-46.3); Red Blood Count 4.14 M/uL (4.20-5.40); White Blood Count 6.91 K/ul (4.8-10.8)
[2024-06-17 22:59] LABS: Acetaminophen < 3 ug/ml (10-30); Salicylate < 3.0 mg/dl (3.0-30)
[2024-06-17 23:05] LABS: Alanine Aminotransferase 9 U/L (7-52); Albumin Globulin Ratio 1.7 (0.9-2); Albumin Level 4.5 gm/dl (3.4-5.0); Alkaline Phosphatase 38 U/L (34-104); Anion Gap 10 (3-11); BUN Creatinine Ratio 11.9 (10-20); Bilirubin,Total 0.2 mg/dl (0.2-1.0); Blood Urea Nitrogen 10 mg/dl (6-23); Calcium 8.7 mg/dl (8.6-10.3); Carbon Dioxide 21 mmol/L (21-32); Chloride 107 mmol/L (98-107); Creatine Kinase 202 U/L (26-192); Globulin 2.6 gm/dl (2.5-4.0); Glucose 83 mg/dl (70-99(Fasting)); Lipase 51 U/L (11-82); Magnesium 2.2 mg/dl (1.7-2.4); Sodium 138 mmol/L (136-145); Total Protein 7.1 gm/dl (6.0-8.3)
[2024-06-17 23:12] LABS: Troponin I High Sensitivity 5.5 pg/ml (0-14)
[2024-06-17 23:27] LABS: HCO3 VBG 24 mmol/L; Oxygen Saturation VBG < 60.0 %; PCO2 VBG 52 mmHg (38-50); PO2 VBG 27 mmHg; pH VBG 7.28 (7.36-7.41)
[2024-06-17 23:42] LABS: Appearance Urine Clear (Clear); Bacteria Urine Automated None Seen (None Seen); Bilirubin Urine Negative (Negative); Blood Urine Negative (Negative); Color Urine Yellow; Epithelial Cell Urine Auto 0-2 /hpf (0-2); Glucose Urine UA Negative (Negative); Ketones Urine Negative (Negative); Leukocyte Esterase Urine Negative (Negative); Nitrite Urine Negative (Negative); Protein Urine Trace (Negative); RBC Urine Automated 0-2 /hpf (0-2); Specific Gravity Urine 1.011 (1.000-1.030); Urobilinogen Urine Negative (Negative); WBC Urine Automated 0-5 /hpf (0-5); pH Urine 5.5 (4.5-7.5)
[2024-06-17 23:48] LABS: Potassium 3.7 mmol/L (3.5-5.1)
[2024-06-17 23:51] LABS: Pregnancy Test, Serum Negative (Negative)
[2024-06-18 00:01] LABS: Partial Thromboplastin Time 26 Seconds (21-31); Prothrombin Time 11.1 Seconds (9.0-12.0)
[2024-06-18 00:07] LABS: Amphetamines+Metham, Urine Neg (Neg); Barbiturates, Urine Neg (Neg); Benzodiazepine, Urine Pos (Neg); Cocaine, Urine Neg (Neg); Fentanyl, Urine Neg (Neg); MDMA (Ecstacy), Urine Neg (Neg); Marijuana, Urine Pos (Neg); Methadone, Urine Neg (Neg); Opiate, Urine Neg (Neg); Phencyclidine, Urine Neg (Neg)
--- NOTE | 2024-06-18 00:08 | CT Scan Report ---
Exam(s): CT HEAD Without Contrast EXAM: CT Head Without Intravenous Contrast CLINICAL HISTORY: sz. TECHNIQUE: Axial computed tomography images of the head/brain without intravenous contrast. CTDI is 54.1 mGy and DLP is 746.9 mGy-cm. Automated exposure control was utilized for the study. A dose lowering technique was utilized adhering to the principles of ALARA. COMPARISON: No relevant prior studies available. FINDINGS: Brain: Ventricle and sulci normal in size and configuration for age. No acute stroke. No acute hemorrhage. No abnormal extra-axial fluid collection. Ventricles: No hydrocephalus. No midline shift. Bones/joints: Unremarkable. No acute fracture. Soft tissues: Unremarkable. Sinuses: Unremarkable as visualized. No acute sinusitis. IMPRESSION: No acute abnormality. Electronically signed by: Emery Rivas M.D. 06/18/24 00:07 AM
--- NOTE | 2024-06-18 00:17 | XRay Report ---
Exam(s): XR CXR 1 VIEW EXAM: XR Chest, 1 View CLINICAL HISTORY: sz. TECHNIQUE: Frontal view of the chest. COMPARISON: No relevant prior studies available. FINDINGS: Lungs: Hypoventilation with minimal bibasilar vascular crowding. No focal infiltrate. Pleural space: No pleural effusion. No pneumothorax. Heart: Unremarkable. No cardiomegaly. Mediastinum: Unremarkable. Normal mediastinal contour. Bones/joints: Unremarkable. No acute fracture. IMPRESSION: Hypoventilation with minimal bibasilar vascular crowding. Electronically signed by: Emery Rivas M.D. 06/18/24 00:16 AM
[2024-06-18] MEDS: SODIUM CHLORIDE 0.9% 1,000 ML IV ONE (00:54)
[2024-06-18] MEDS: NSS + 20MEQ KCL 20 MEQ/1,000 ML BAG IV ONE (02:23)
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
[2024-06-18] MEDS ORDERED: LORazepam 2 MG/1 ML VIAL IV PRN (02:48)
[2024-06-18] MEDS ORDERED: KETOROLAC TROMETHAMINE 15 MG/ML VIAL IV PRN (02:48)
[2024-06-18] MEDS ORDERED: PROMETHAZINE 6.25 MG/50.25 ML BAG IV PRN (02:48)
[2024-06-18] MEDS ORDERED: hydrOXYzine HCl 25 MG TAB PO PRN (03:40)
[2024-06-18 03:42] LABS: Basophils # (auto) 0.02 K/uL (0.00-0.20); Basophils % (auto) 0.2 %; Eosinophils # (auto) 0.05 K/uL (0.00-0.50); Eosinophils % (auto) 0.6 %; Hematocrit (blood only) 32.9 % (37.0-47.0); Hemoglobin 11.1 g/dl (12.0-16.0); Immature Granulocytes # (auto) 0.03 K/uL (0.01-0.20); Immature Granulocytes % (auto) 0.3 %; Lymphocytes # (auto) 1.36 K/uL (1.20-3.40); Lymphocytes % (auto) 15.6 %; Mean Corpuscular Hemoglobin 30.6 pg (25.0-34.0); Mean Corpuscular Hgb Conc 33.7 g/dL (32.0-36.0); Mean Corpuscular Volume 90.6 fL (80.0-100.0); Monocytes # (auto) 0.46 K/uL (0.11-0.59); Monocytes % (auto) 5.3 %; Neutrophils # (auto) 6.78 K/uL (1.40-6.50); Platelet Count 209 K/uL (130-400); RDW Standard Deviation 39.6 fL (36.4-46.3); Red Blood Count 3.63 M/uL (4.20-5.40)
[2024-06-18 03:49] LABS: Anion Gap 6 (3-11); BUN Creatinine Ratio 15.7 (10-20); Blood Urea Nitrogen 11 mg/dl (6-23); Calcium 7.8 mg/dl (8.6-10.3); Carbon Dioxide 22 mmol/L (21-32); Chloride 111 mmol/L (98-107); Creatine Kinase 221 U/L (26-192); Glucose 99 mg/dl (70-99(Fasting)); Sodium 139 mmol/L (136-145)
[2024-06-18] MEDS: GADOBUTROL 65ML VIAL IV ONE (04:33)
[2024-06-18] MEDS: ACETAMINOPHEN 325 MG TAB PO PRN (04:48)
--- NOTE | 2024-06-18 05:20 | Magnetic Resonance Report ---
EXAM: MR brain seizure wo/w con CLINICAL HISTORY: seizure on 06/17/24. history of heroin use. patient had facial piercings she refused to take out. injected 10cc gadavist through existing iv left arm uneventful at 0430. Room A12B. 308 images INPATIENT TECHNIQUE: MRI of the brain was performed with and without intravenous contrast administration (10 cc gadavist). Sequences obtained include pre-contrast and post-contrast T1-weighted, T2-weighted, FLAIR (Fluid-Attenuated Inversion Recovery), DWI (Diffusion-Weighted Imaging), and ADC (Apparent Diffusion Coefficient) sequences. COMPARISON: No previous studies are available for comparison. FINDINGS: Brain Parenchyma: No evidence of acute infarction or hemorrhage. Santos-white matter differentiation is preserved. No abnormal signal-intensity lesions were identified. Post-Contrast Findings: No abnormal enhancement of the brain parenchyma or meninges. Ventricles and Sulci: The ventricular system is within normal limits without evidence of hydrocephalus. Sulci and cisternal spaces are age-appropriate. Brainstem and Cerebellum: Normal appearance of the brainstem and cerebellum without focal lesions or abnormal enhancement. Vessels: Intracranial vessels appear normal without evidence of vascular malformations or aneurysms. Skull and Calvarium: No evidence of skull vault lesions or abnormal marrow signal within the calvarium. IMPRESSION: MRI of the brain with and without contrast: 1. Normal brain parenchyma and structures. 2. No evidence of acute intracranial pathology or abnormal contrast enhancement. Electronically signed by Bhaskar Castellanos 06-18-2024 05:19 AM
[2024-06-18 08:35] VITALS: RESP 20
[2024-06-18] MEDS: levETIRAcetam 500 MG TAB PO SCH (08:36)
[2024-06-18] MEDS: lamoTRIgine 100 MG TAB PO SCH (08:36)
[2024-06-18 09:58] VITALS: BP 99/69; PULSE 65; TEMP 98.1; O2SAT 95
--- NOTE | 2024-06-18 10:48 | Communication Note ---
Date of Service: June 18, 2024 Evaluated patient in ED at bedside Still quite tired/sleeping upon exam, awakens briefly and answers questions appropriately denied any active concerns at time of examination recently followed neurology 05/22 due to breakthrough seizures; reportedly ongoing since summer EXAM tired, sleeping, no acute neurologic deficits noted, no seizure like act ivity #Breakthrough seizures #Seizure disorder * Continue Lamictal 200 mg qam * Continue Lamictal 100 mg BID * Continue Keppra 1000 mg BID MRI ordered EEG ordered Neuro to eval patient for further adjustments Seizure precautions
--- NOTE | 2024-06-18 12:57 | Neurology Consultation ---
Date of Consultation June 18, 2024 Assessment & Plan (1) Breakthrough seizure: Prachi Gomez is a 33 yo F presenting with a breakthrough seizure in the setting of a known seizure disorder. Unclear etiology of her seizures which have not been captured on LTM. She is on appropriate AED therapy but is awaiting levels which may take several days to come back. Until levels are back compliance with her medications is unclear. Would not otherwise increase or add a third agent until her LTM session. -- No further neurologic workup or change in management at this time -- Agree with LTM as planned -- Drug levels pending for Lamotrigine and keppra Telehealth Consultation Telehealth Information Telehealth Information: I performed this visit using a real-time telehealth connection between my location and the patients location ([facility]). After connecting through interactive tele-video, patient was identified by name and date of and/or wristband check.Patient (or authorized healthcare patient intake representative) was informed that this was a telemedicine visit and it was being conducted confidentially over secure lines. My office door was closed and no one else was present in the room with me.Patient (or authorized healthcare patient intake representative) provided consent to proceed with the visit, expressed an understanding of privacy and security of the telemedicine visit, and gave permission to have a hospital patient intake representative in the room in order to assist with the visit and to conduct portions of the visit, as needed. I informed the patient (or authorized healthcare patient intake representative) that I reviewed their record and presented the opportunity for them to ask any questions regarding the visit today. The patient agreed to participate. History of Present Illness Reason for Consultation: Breakthrough seizure Requesting Physician: Dr. Sutton Attending Physician: Celia Sutton MD History of Present Illness Prachi Gomez is a 33 yo F presenting with a breakthrough GTC. Patient has a known history of seizures on keppra and lamotrigine. Despite reportedly taking her medications she continues to have breakthrough events. Her neurologist is planning to have her complete a 72 hour vEEG monitoring to capture a spell. She has had monitoring in the past but never had a spell while on EEG. She otherwise feels well currently and would like to go home. Allergies Allergy/AdvReac Type Severity Reaction Status Date / Time No Known Drug Allergies Allergy Verified 03/09/21 10:41 Home Medications Medication Instructions Recorded Confirmed Type hydroxyzine HCl 50 mg tablet 50 mg PO Q6 PRN Anxiety 06/18/24 06/18/24 History lamotrigine 100 mg tablet 100 mg PO AMHS 06/18/24 06/18/24 History lamotrigine 200 mg tablet 200 mg PO AMHS 06/18/24 06/18/24 History levetiracetam 500 mg tablet 1,000 mg PO AMHS 06/18/24 06/18/24 History prazosin 5 mg capsule 5 mg PO HS 06/18/24 06/18/24 History quetiapine 400 mg tablet 400 mg PO HS 06/18/24 06/18/24 History Patient History Surgical History History of tubal ligation Family History Father Anxiety Cirrhosis of liver Mother Anxiety Grandfather (Maternal) Colorectal cancer Grandmother (Maternal) Breast cancer, Onset Age: 60 Grandfather (Paternal) Myocardial infarction Denies family history of Ovarian cancer Prostate cancer Lung cancer Social History Smoking Status: Current every day smoker Tobacco Type: E-cigarettes / Vaping Age Started Using Tobacco: 10; packs per day: 3; Second Hand Exposure: Yes; Do You Dip or Chew Tobacco: No; Hx Alcohol Use: No Hx Substance Use: Yes Prescribed Medications: Marijuana Last Used Substance Other:: per patient "last used weed gummies 2-3 months ago" Preferred Language: Bangladeshi Communication Ability: Effective Visual Impairment: Limited Hearing Ability: Normal Machine Shorthand Reporter Required: No Beliefs That Will Affect Care: None marital status: Single Current Living Situation: Parent and Family Current Living Situation Comment: daughter and gram current occupational status: unemployed How many Children do You have: 1 Other Information That Helps Us Care for You: No Feels Safe at Home: Yes Safety Concerns: Feels Safe At This Time Childhood Exposure to Second-Hand Smoke: Yes caffeine: Yes (drinks coffee ) Dental Care, Regularly: No Physical Activity Frequency: Does not Exercise Seatbelt Use: always Sunscreen Use: No Assistive Devices: Contacts, Denture - Upper and Denture - Lower Assistive Devices Comment: Dentures not with patient Review of Systems +seizure Physical Exam Awake and alert, speech clear, no aphasia, oriented x3. Moves all extremities against gravity. No abnormal movements. Results & Data Vital Signs (Past 12 Hours) Vital Signs Temp Pulse Pulse Resp BP Pulse Ox O2 Del Method 06/18/24 09:57 36.7 C 65 20 99/69 L 95 Room Air 06/18/24 08:00 77 20 115/57 L 99 Room Air 06/18/24 06:20 72 14 103/67 100 Room Air 06/18/24 05:55 82 16 117/75 97 Room Air 06/18/24 04:52 36.8 C 75 16 130/73 97 Room Air 06/18/24 04:50 79 16 130/73 97 Room Air 06/18/24 03:34 87 16 89/68 L 96 Room Air 06/18/24 03:34 96 Room Air 06/18/24 02:26 85 20 95/68 L 95 Room Air 06/18/24 02:05 109 H Laboratory Results Abnormal lab results 06/17/24 06/17/24 06/17/24 Range/Units 22:32 23:15 23:21 RBC 4.14 L (4.20-5.40) M/uL Hgb (12.0-16.0) g/dl Hct (37.0-47.0) % Neut # (Auto) (1.40-6.50) K/uL VBG pH 7.28 L (7.36-7.41) VBG pCO2 52 H (38-50) mmHg Chloride (98-107) mmol/L Calcium (8.6-10.3) mg/dl AST 12 L (13-39) U/L Total Creatine Kinase 202 H (26-192) U/L Urine Protein Trace H (Negative) U Hyaline Cast (Auto) 3-5 H (0-2) /lpf Salicylates < 3.0 L (3.0-30) mg/dl Acetaminophen < 3 L (10-30) ug/ml U Benzodiazepines Scrn Pos H (Neg) U Marijuana (THC) Screen Pos H (Neg) 06/18/24 Range/Units 03:23 RBC 3.63 L (4.20-5.40) M/uL Hgb 11.1 L (12.0-16.0) g/dl Hct 32.9 L (37.0-47.0) % Neut # (Auto) 6.78 H (1.40-6.50) K/uL VBG pH (7.36-7.41) VBG pCO2 (38-50) mmHg Chloride 111 H (98-107) mmol/L Calcium 7.8 L (8.6-10.3) mg/dl AST (13-39) U/L Total Creatine Kinase 221 H (26-192) U/L Urine Protein (Negative) U Hyaline Cast (Auto) (0-2) /lpf Salicylates (3.0-30) mg/dl Acetaminophen (10-30) ug/ml U Benzodiazepines Scrn (Neg) U Marijuana (THC) Screen (Neg) Diagnostic Findings MRI brain - Unremarkable
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
[2024-06-18] MEDS ORDERED: lamoTRIgine 100 MG TAB PO SCH (21:00)
[2024-06-18] MEDS ORDERED: QUEtiapine FUMARATE 200 MG TAB PO SCH (21:00)
--- NOTE | 2024-06-20 06:18 | Electroencephalogram ---
EEG Procedure Note Date of Service June 18, 2024 Start / End Times Start Time: 1311 End Time: 1331 Referring Physician Celia Sutton MD History A 33 year old female with breakthrough seizure. EEG performed for evaluation of epileptiform activity. Home Medication List Medication Instructions Recorded Confirmed Type hydroxyzine HCl 50 mg tablet 50 mg PO Q6 PRN Anxiety 06/18/24 06/18/24 History lamotrigine 100 mg tablet 100 mg PO [facility] 06/18/24 06/18/24 History lamotrigine 200 mg tablet 200 mg PO [facility] 06/18/24 06/18/24 History levetiracetam 500 mg tablet 1,000 mg PO [facility]HS 06/18/24 06/18/24 History prazosin 5 mg capsule 5 mg PO HS 06/18/24 06/18/24 History quetiapine 400 mg tablet 400 mg PO HS 06/18/24 06/18/24 History Inpatient Medication List Discontinued Medications Acetaminophen (Acetaminophen 325 Mg Tab) 650 mg PO QID PRN PRN Reason: pain/fever Stop: 07/18/24 02:47 Last Admin: 06/18/24 04:48 Dose: 650 mg Documented By: LAURI Gadobutrol (Gadobutrol 65ml Vial) 10 ml IV ONCE ONE Stop: 06/18/24 04:33 Last Admin: 06/18/24 04:33 Dose: 10 ml Documented By: NATALIE Sodium Chloride (Nss) 1,000 mls @ 999 mls/hr IV .Q1H1M ONE Stop: 06/18/24 01:30 Last Infusion: 06/18/24 02:11 Dose: Infused Documented By: Admin: 06/18/24 00:54 Dose: 999 mls/hr Documented By: LAURI Potassium Chloride/Sodium Chloride (Normal Saline W/20 Meq Kcl) 20 meq in 1,000 mls @ 200 mls/hr IV .Q5H ONE Stop: 06/18/24 05:48 Last Infusion: 06/18/24 09:19 Dose: Infused Documented By: Infusion: 06/18/24 04:49 Dose: 200 mls/hr Documented By: Infusion: 06/18/24 04:14 Dose: 0 mls/hr Documented By: Admin: 06/18/24 02:23 Dose: 200 mls/hr Documented By: LAURI Lamotrigine (Lamotrigine 100 Mg Tab) 200 mg PO BID [facility]; Protocol Stop: 07/18/24 08:59 Last Admin: 06/18/24 08:36 Dose: 200 mg Documented By: MILAGRO Levetiracetam (Levetiracetam 500 Mg/5 Ml Vial) 2,000 mg IV NOW STA Stop: 06/17/24 22:16 Last Admin: 06/17/24 22:30 Dose: 2,000 mg Documented By: MANUEL Levetiracetam (Levetiracetam 500 Mg Tab) 1,000 mg PO BID ZANA Stop: 07/18/24 08:59 Last Admin: 06/18/24 08:36 Dose: 1,000 mg Documented By: MILAGRO Description This is a 21 electrode EEG with a single channel dedicated to limited EKG. The electrodes were placed in accordance with the International 10-20 system. REPORT: At the onset of the EEG the patient is awake. The background is symmetric. The posterior dominant rhythm is 9-10 Hz. There is a normal anterior to posterior gradient. Drowsiness is characterized by increased theta activity and reduced myogenic artifact. Interpretation IMPRESSION: This is a normal awake and drowsy routine EEG. There is no evidence of epileptiform activity.
--- NOTE | 2024-06-20 10:40 | Electrocardiogram Report ---
Test Reason : Blood Pressure : */* mmHG Vent. Rate : 125 BPM Atrial Rate : 125 BPM P-R Int : 156 ms QRS Dur : 84 ms QT Int : 314 ms P-R-T Axes : 65 46 46 degrees QTcB Int : 453 ms Poor data quality, interpretation may be adversely affected Sinus tachycardia Otherwise normal ECG No previous ECGs available Confirmed by Serge Collins ([id number]) on 06/20/2024 10:40:13 AM Referred By: Confirmed By: Serge Collins
[2024-06-21 11:57] LABS: Levetiracetam Keppra 57.8 mcg/mL (6.0-46.0)
[2024-06-22 14:53] LABS: 7-Aminoclonaz, Confirm NEGATIVE ng/mL (<25); Hydro-Alp Ur, GC/MS NEGATIVE ng/mL (<25); Hydroxyethylflurazepam, Conf NEGATIVE ng/mL (<50); Hydroxymidazolam Ur, GC/MS >2000 ng/mL (<50); Hydroxytriazolam NEGATIVE ng/mL (<50); Lorazepam, Ur GC/MS NEGATIVE ng/mL (<50); Nordiazepam, Confirm NEGATIVE ng/mL (<50); Oxazepam Ur, GC/MS NEGATIVE ng/mL (<50); Temazepam, Confirm NEGATIVE ng/mL (<50)
== END 2024-06-18 13:10 | disposition home or self-care (01) | DRG 101 ==
LOC: ED 22:12 → INTOOBSV 06-18 02:47 → EDINP 06-18 02:47